=== PATIENT | female | born 1980 | race Two or more races ===

== ENCOUNTER 2024-01-08 09:28 | Emergency (ER) | payer BC, MEDICAID, SELFPAY ==
--- NOTE | 2024-01-08 09:31 | ECG_ITS ---
[facility]: 2024-01[facility]08 Pat Name: Gracie Michaels Department: Room: Gender: Female Administrative Associate: : 1980 Requested By: Vicki Martinez Order Number: [id number] Silvio MD: Sagrario Fonseca M.D. Measurements Intervals [place] Rate: 94 P: 48 DE: 144 QRS: -7 QRSD: 76 T: 32 QT: 355 QTc: 444 Interpretive Statements SINUS RHYTHM NONSPECIFIC T-WAVE ABNORMALITY No previous ECG available for comparison Electronically Signed On 01-08-2024 22:26:25 CDT by Sagrario Fonseca M.D. [id number]
[2024-01-08 09:38] VITALS: BP 131/92; PULSE 97; RESP 20; TEMP 36.6; O2SAT 96; BMI 31.8
--- NOTE | 2024-01-08 09:39 | XR_ITS ---
WS: [id number] XR chest 1V portable [id number] REASON FOR EXAM: chest pain FINDINGS: The heart and mediastinum are within normal limits. Calcified granulomas disease bilaterally. No focal lung lesion. No acute pulmonary parenchymal or pleural abnormality. No significant abnormality of the bony thorax. XR/XR chest 1V portable [id number] IMPRESSION: No acute chest abnormality.
--- NOTE | 2024-01-08 09:56 | ED_ITS ---
HPI - Chest Pain 2 General: Chief Complaint: Chest Pain Stated Complaint: chest pain Time Seen by Provider: 01/08/24 09:39 History of Present Illness: 43-year-old female presents to the emergency room with complaints of chest discomfort. Pain is reproducible with palpation across the anterior chest wall. Pain is also worse with inspiration. No history of coronary disease no fever sweats or chills. No hemoptysis no productive cough. History obtained with the assistance of online partnership manager service Associated symptoms: Deny abdominal pain, dyspnea or fever(s) Related Data Home Medications Medication Instructions Recorded Confirmed atorvastatin 80 mg tablet 80 mg PO DAILY 01/08/24 01/08/24 hydrochlorothiazide 12.5 mg tablet 12.5 mg PO QAM 01/08/24 01/08/24 hydroxyzine HCl 25 mg tablet 25 - 50 mg PO Q6H PRN SEVERE 01/08/24 01/08/24 ANXIETY ibuprofen 800 mg tablet 800 mg PO TID PRN Pain 01/08/24 01/08/24 insulin aspart U-100 100 unit/mL 35 unit SUBCUT TID 01/08/24 01/08/24 (3 mL) subcutaneous pen insulin glargine 100 unit/mL 85 unit SUBCUT DAILY 01/08/24 01/08/24 subcutaneous solution (Lantus U-100 Insulin) insulin lispro 100 unit/mL 35 unit SUBCUT TID 01/08/24 01/08/24 subcutaneous solution levothyroxine 137 mcg tablet See Rx Instructions .Route .COMPLEX 01/08/24 01/08/24 levothyroxine 150 mcg tablet See Rx Instructions .Route .COMPLEX 01/08/24 01/08/24 naproxen 500 mg tablet See Rx Instructions .Route .COMPLEX 01/08/24 01/08/24 nitroglycerin 0.4 mg sublingual See Rx Instructions .Route .COMPLEX 01/08/24 01/08/24 tablet pantoprazole 40 mg tablet,delayed 40 mg PO DAILY 01/08/24 01/08/24 release prednisone 20 mg tablet 20 mg PO .[id number] 01/08/24 01/08/24 Previous Rx's Medication Instructions Recorded diclofenac sodium 75 mg 75 mg PO Q12H PRN pain #20 tabs 01/08/24 tablet,delayed release Allergies Allergy/AdvReac Type Severity Reaction Status Date / Time No Known Allergies Allergy Verified 01/08/24 09:50 Review of Systems 2 Const: Denies: fever(s) or chills Card: Reports: chest pain Resp: Denies: dyspnea GI: Denies: abdominal pain : Denies: dysuria, urinary frequency or urinary urgency Musc: Denies: neck pain or back pain Skin/Breast: Denies: rash PFSH ED 2 PFSH: Family History Father Diabetes Denies family history of Colon cancer Ovarian cancer Heart disease Hyperlipidemia Breast cancer Hypertension Uterine cancer Thyroid disease Stroke Female Reproductive History: Date of last menstrual period: 12/26/23 Physical Exam 2 Const: COMMON NORMALS: no acute distress GENERAL APPEARANCE: cooperative and comfortable ORIENTATION/CONSCIOUSNESS: Yes awake HENMT: COMMON NORMALS: normocephalic, atraumatic and hearing grossly normal bilaterally HEAD & SCALP: normocephalic and atraumatic Resp: COMMON NORMALS: normal respiratory effort, No retractions, No use of accessory muscles and clear to auscultation bilaterally AUSCULTATION: clear to auscultation bilaterally Cardio: COMMON NORMALS: regular rate, regular rhythm and No murmurs present (Cardio) RATE: regular rate RHYTHM: regular rhythm GI: COMMON NORMALS: Soft to palpation and No hepatosplenomegaly present A USCULTATION: Yes normoactive bowel sounds PALPATION: Yes Soft to palpation, No Tenderness to palpation present (GI), No Guarding due to palpation present (GI) and Yes No hepatosplenomegaly present Extremity: COMMON NORMALS: normal to inspection, capillary refill normal, no clubbing, cyanosis or edema, no calf tenderness and no pedal edema Skin: COMMON NORMALS: no rashes or lesions noted GENERAL SKIN EXAM: no rashes or lesions noted Course 2 Vital Signs: Vital signs: Vital Signs Temperature 97.8 F 01/08/24 09:38 Pulse Rate 85 01/08/24 13:45 Respiratory Rate 16 01/08/24 13:43 Blood Pressure 128/94 01/08/24 13:45 Pulse Oximetry 100 01/08/24 13:45 Oxygen Delivery Me thod Room Air 01/08/24 13:43 MDM - Chest Pain Medical Decision Making Female is reproducible chest pain EKG does not show any acute changes chest x- ray normal laboratory tests are normal. Will discharge patient home with diclofenac as needed. No sign of coronary disease no sign of pneumonia pneumothorax. No sign of PE clinically of PE. Lab Data I reviewed the patient's lab results. 01/08/24 09:52 01/08/24 09:52 Radiology Impressions Chest X-Ray 01/08/24 09:39 IMPRESSION: No acute chest abnormality. Laboratory Results WBC 17.28 10^3/uL (3.29-11.43) H 01/08/24 09:52 RBC 5.33 10^6/uL (3.85-5.65) 01/08/24 09:52 Hgb 12.60 g/dL (11.27-16.99) 01/08/24 09:52 Hct 40.8 % (36-47) 01/08/24 09:52 MCV 76.5 fl (85-98) L 01/08/24 09:52 MCH 23.6 pg (27-33) L 01/08/24 09:52 MCHC 30.9 g/dL (30-55) 01/08/24 09:52 RDW 15.6 % (12.1-15.1) H 01/08/24 09:52 Plt Count 447 10^3/cmm (157-399) H 01/08/24 09:52 MPV 9.0 fL (7.4-10.4) 01/08/24 09:52 Neut % (Auto) 70.4 % 01/08/24 09:52 Lymph % (Auto) 21.5 % 01/08/24 09:52 [place] % (Auto) 7.0 % 01/08/24 09:52 Eos % (Auto) 0.2 % 01/08/24 09:52 Baso % (Auto) 0.3 % 01/08/24 09:52 Neut # (Auto) 12.15 10^3/uL (1.8-7.7) H 01/08/24 09:52 Lymph # (Auto) 3.7 10^3/uL (0.8-4.8) 01/08/24 09:52 [place] # (Auto) 1.2 10^3/uL (0.2-0.9) H 01/08/24 09:52 Eos # (Auto) 0.0 10^3/uL (0.0-0.8) 01/08/24 09:52 Baso # (Auto) 0.1 10^3/uL (0.0-0.1) 01/08/24 09:52 Nucleated RBC % (auto) 0 % 01/08/24 09:52 Nucleated RBCs # 0.0 /100WBC 01/08/24 09:52 Sodium 136 mmol/L (136-145) 01/08/24 09:52 Potassium 4.2 mmol/L (3.5-5.1) 01/08/24 09:52 Chloride 99 mmol/L (98-107) 01/08/24 09:52 Carbon Dioxide 24 mmol/L (22-29) 01/08/24 09:52 Anion Gap 17.2 (5-19) 01/08/24 09:52 BUN 11 mg/dL (6-20) 01/08/24 09:52 Creatinine 0.6 mg/dL (0.5-0.9) 01/08/24 09:52 GFR Calculation 108.6 mL/min (90-130) 01/08/24 09:52 Glucose 317 mg/dL (65-115) H 01/08/24 09:52 Calculated Osmolality 294 mOsm/kg (285-295) 01/08/24 09:52 Calcium 9.6 mg/dL (8.5-10.5) 01/08/24 09:52 Total Bilirubin 0.2 mg/dL (0.15-1.2) 01/08/24 09:52 AST 12 U/L (0-32) 01/08/24 09:52 ALT 19 U/L (0-33) 01/08/24 09:52 Alkaline Phosphatase 107 U/L (35-105) H 01/08/24 09:52 Troponin T Baseline < 6 ng/L (0-10) 01/08/24 09:52 Troponin T 120 Minute 6.00 ng/L (0-10) 01/08/24 12:35 Delta Troponin T 0.06509 ABS# (0-10) 01/08/24 12:35 Total Protein 7.5 g/dL (6.6-8.7) 01/08/24 09:52 Albumin 4.4 g/dL (3.5-5.2) 01/08/24 09:52 Globulin 3.1 g/dL (1.3-4.6) 01/08/24 09:52 HCG, Qual Negative (Negative) 01/08/24 09:52 All radiology interpretation(s) finalized by discharge Discharge Plan Discharge Patient Disposition: Home Clinical Impression: Anterior chest wall pain Condition: Stable Prescriptions: New diclofenac sodium 75 mg tablet,delayed release (DR/EC) 75 mg PO Q12H PRN (Reason: pain) Qty: 20 0RF No Action levothyroxine 137 mcg tablet See Rx Instructions .ROUTE .COMPLEX Rx Instructions: TAKE 1 TABLET BY MOUTH DAILY AND TAKE 2 TABLETS ON THURSDAY atorvastatin 80 mg tablet 80 mg PO DAILY insulin glargine [Lantus U-100 Insulin] 100 unit/mL solution 85 unit SUBCUT DAILY prednisone 20 mg tablet 20 mg PO .[id number] pantoprazole 40 mg tablet,delayed release (DR/EC) 40 mg PO DAILY levothyroxine 150 mcg tablet See Rx Instructions .ROUTE .COMPLEX Rx Instructions: TAKE 1 TABLET BY MOUTH DAILY AND TAKE 2 TABLETS ON THURSDAY nitroglycerin 0.4 mg tablet, sublingual See Rx Instructions .ROUTE .COMPLEX Rx Instructions: PLACE ONE TABLET UNDER TONGUE NEEDED FOR CHEST PAIN EVERY 5 MINUTES insulin lispro 100 unit/mL solution 35 unit SUBCUT TID naproxen 500 mg tablet See Rx Instructions .ROUTE .COMPLEX Rx Instructions: Take 1 tablet DAILY WITH FOOD FOR 7 DAYS THEN NEEDED hydrochlorothiazide 12.5 mg tablet 12.5 mg PO QAM ibuprofen 800 mg tablet 800 mg PO TID PRN (Reason: Pain) insulin aspart U-100 100 unit/mL (3 mL) insulin pen 35 unit SUBCUT TID hydroxyzine HCl 25 mg tablet 25 - 50 mg PO Q6H PRN (Reason: SEVERE ANXIETY) Discharge Orders: Discharge ED (Routine); Ordered 01/08/24 Ordered By: José Luis Timmons Discharge Diet: Usual diet Discharge Activity: Increase activity as tolerated Patient Instructions: Opioid Safety, Pain Management Activity Restrictions/Additional Instructions: Thank you for choosing [facility] for your healthcare needs today. It is very important that you follow up as instructed or that you return to the Emergency Department should you have concerns or if your condition changes or worsens in any way. You were seen today for chest pain. Your pain is reproducible with palpation cardiac enzymes and EKG were negative will discharge you home use diclofenac as needed follow-up with your primary care doctor as needed return if you have further problems. Coding Level of Care Code ED Computer Aided Drafter for Vickie Mcfarlane
[2024-01-08 10:04] LABS: Basophils # 0.1 10^3/uL (0.0-0.1); Basophils % 0.3 %; Eosinophils % 0.2 %; Hematocrit 40.8 % (36-47); Lymphocytes # 3.7 10^3/uL (0.8-4.8); Lymphocytes % 21.5 %; Mean Corpuscular HGB Conc 30.9 g/dL (30-55); Mean Corpuscular Hemoglobin 23.6 pg (27-33); Mean Corpuscular Volume 76.5 fl (85-98); Monocytes # 1.2 10^3/uL (0.2-0.9); Neutrophils # 12.15 10^3/uL (1.8-7.7); Neutrophils % 70.4 %; Nucleated Red Blood Cells % 0 %; Platelet Count 447 10^3/cmm (157-399); Red Blood Count 5.33 10^6/uL (3.85-5.65); Red Cell Distribution Width 15.6 % (12.1-15.1); White Blood Count 17.28 10^3/uL (3.29-11.43)
[2024-01-08 10:11] LABS: HCG, Serum Qual Negative (Negative)
[2024-01-08 10:17] LABS: Alanine Aminotransferase 19 U/L (0-33); Albumin Level 4.4 g/dL (3.5-5.2); Alkaline Phosphatase 107 U/L (35-105); Anion Gap 17.2 (5-19); Aspartate Amino Transferase 12 U/L (0-32); Blood Urea Nitrogen 11 mg/dL (6-20); Calcium 9.6 mg/dL (8.5-10.5); Carbon Dioxide 24 mmol/L (22-29); Chloride 99 mmol/L (98-107); Creatinine Clr Calc Pharmacy 121.0755; Globulin 3.1 g/dL (1.3-4.6); Glomerular Filtration Rate 108.6 mL/min (90-130); Glucose 317 mg/dL (65-115); Osmolality Calculated 294 mOsm/kg (285-295); Potassium 4.2 mmol/L (3.5-5.1); Sodium 136 mmol/L (136-145); Total Bilirubin 0.2 mg/dL (0.15-1.2); Total Protein 7.5 g/dL (6.6-8.7)
[2024-01-08 10:25] LABS: Troponin(5th) Baseline < 6 ng/L (0-10)
[2024-01-08 11:15] VITALS: BP 131/92; PULSE 95; RESP 16; O2SAT 100
--- NOTE | 2024-01-08 11:44 | ECG_ITS ---
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 Measurements Intervals [place] Rate: 95 P: 47 MI: 142 QRS: -8 QRSD: 77 T: 31 QT: 358 QTc: 450 Interpretive Statements SINUS RHYTHM MINIMAL VOLTAGE CRITERIA FOR LVH, CONSIDER NORMAL VARIANT [MEETS CRITERIA IN ONE OF: R(aVL), S(V1), R(V5), R(V5/V6)+S(V1)] NONSPECIFIC T-WAVE ABNORMALITY Compared to ECG 01/08/2024 09:31:56 No significant changes Electronically Signed On 01-08-2024 22:42:33 CDT by Sagrario Fonseca M.D. [email or web address]
[2024-01-08 12:05] VITALS: RESP 16
[2024-01-08 12:37] VITALS: BP 129/85
--- NOTE | 2024-01-08 12:41 | PC.PHAR ---
Patient has 2 rx's for Levothyroxine patient states she is taking the 150 mcg how ever she does have a newer rx for 137 mcg on hold . Patient also states she showed a Novolg Flx pen in her purse and said it was her last one because the won't cover it and swithched her to Lispro .
[2024-01-08 13:04] LABS: Troponin 5 2HR Delta 0.00001 ABS# (0-10)
[2024-01-08 13:43] VITALS: BP 128/94; RESP 16; O2SAT 100
[2024-01-08 13:45] VITALS: BP 128/94; PULSE 85; O2SAT 100
== END 2024-01-08 13:46 | disposition home or self-care (01) ==
PROVIDERS: Physician Assistant; Emergency Provider Family Medicine
DX: R07.89 Other chest pain (principal); Z79.4 Long term (current) use of insulin
CPT/HCPCS: 36415; 71045; 80053; 84484; 84703; 85025; 93005; 99285